=== PATIENT | female | born 1960 | race American Indian/Alaskan Native ===

== ENCOUNTER 2018-02-17 08:07 | Day surgery (SDC) | payer MEDICARE, OTHER ==
[2018-02-16 12:51] VITALS: BMI 28.8
[2018-02-17] MEDS ORDERED: Lactated Ringer's 500 ML IV ONE ×2 (10:54)
[2018-02-17] MEDS ORDERED: Propofol 10 mg/ml Inj (20 ML) ONE ×2 (11:03→11:26)
[2018-02-17 11:06] VITALS: O2SAT 100
[2018-02-17] MEDS ORDERED: Lidocaine Hydrochloride 5 ML INJ ONE (11:17)
[2018-02-17 11:52] VITALS: RESP 17; TEMP 97.5
[2018-02-17 12:35] VITALS: BP 107/59; PULSE 64
== END 2018-02-17 12:33 | disposition home or self-care (01) ==
LOC: C.ENDO 08:07
PROVIDERS: ATTEND Internal Medicine Gastroenterology
DX: Z12.11 Encounter for screening for malignant neoplasm of colon (principal); D12.5 Benign neoplasm of sigmoid colon; K57.30 Diverticulosis of large intestine without perforation or abscess without bleeding; K64.8 Other hemorrhoids
CPT/HCPCS: 45380; 88305; J2704; J7120